=== PATIENT | male | born 1940 | race Caucasian/White ===

== ENCOUNTER 2016-11-19 10:54 | Emergency (ER) | payer OTHER, BC ==
[~2016-11-19] VITALS: Ht 170.2 cm; Wt 78.9 kg
[~2016-11-19 10:54] MED LIST: ALEVE220 MG PO; AMOXICILLIN875 MG PO; ASPIRIN EC81 M1 PO; ASPIRIN325 PO; AUGMENTIN 875875 MG PO; CARAFATE 1 GM TA1 G1 PO; FISH OIL 1,0001 EAC5 PO; FISH OIL SOFTG1 EACH PO; FISHOIL PO; FLONASE 0.05%50 MCG INH; HYDROCODONE-AP1 EAC6 PO; LASIX 40 MG TAB40 M2 PO; LIPITOR40 MG PO; LIPITOR80 MG PO; LORTAB 5 MG/5001 TA1 PO; MEGARED FISH OIL PO; NORCO 5-325 TA1 EACH PO; PERCOCET 7.5-31 EACH PO; PLAVIX 75 MG TA75 MG PO; PROTONIX40 M1 PO; QUINU5 PD PO; SENOKOT-S1 TA1 PO; TRAMADOL 50 MG50 MG PO; [UNRECOGNIZED DRUG - REMARK]
[2016-11-19] MEDS ORDERED: KEFLEX500 MG PO (12:23)
== END 2016-11-19 12:23 | disposition home or self-care (01) ==
LOC: ER 10:54
DX: S61.412A Laceration without foreign body of left hand, initial encounter (principal); F10.99 Alcohol use, unspecified with unspecified alcohol-induced disorder; Z95.0 Presence of cardiac pacemaker; W29.3XXA Contact with powered garden and outdoor hand tools and machinery, initial encounter; Y93.89 Activity, other specified; Y92.89 Other specified places as the place of occurrence of the external cause; Y99.8 Other external cause status

== ENCOUNTER → 2019-03-24 | Outpatient (CLI) | payer OTHER, BC ==
[~2019-03-24] MED LIST changes: +KEFLEX500 MG PO
== END ==
LOC: SJCVCINTER 11:34 → SJCVCIMAG 12:01
DX: Z01.818 Encounter for other preprocedural examination (principal); I72.3 Aneurysm of iliac artery; I25.10 Atherosclerotic heart disease of native coronary artery without angina pectoris; I10 Essential (primary) hypertension; I73.9 Peripheral vascular disease, unspecified; E78.00 Pure hypercholesterolemia, unspecified; Z95.828 Presence of other vascular implants and grafts; Z95.0 Presence of cardiac pacemaker; Z87.891 Personal history of nicotine dependence; Z86.73 Personal history of transient ischemic attack (TIA), and cerebral infarction without residual deficits

== ENCOUNTER → 2019-12-29 | Outpatient (CLI) | payer OTHER, BC | LOC: SJCVC 10:21 | PROVIDERS: ATTEND Internal Medicine Cardiovascular Disease | DX: Z45.018 Encounter for adjustment and management of other part of cardiac pacemaker (principal); I44.1 Atrioventricular block, second degree; R94.31 Abnormal electrocardiogram [ECG] [EKG]; I10 Essential (primary) hypertension; I65.23 Occlusion and stenosis of bilateral carotid arteries; I72.3 Aneurysm of iliac artery; I49.5 Sick sinus syndrome; E78.00 Pure hypercholesterolemia, unspecified; Z79.899 Other long term (current) drug therapy; Z86.73 Personal history of transient ischemic attack (TIA), and cerebral infarction without residual deficits; Z87.891 Personal history of nicotine dependence ==

== ENCOUNTER → 2020-01-17 | Outpatient (CLI) | payer OTHER, BC | LOC: RAD 13:45 | PROVIDERS: ATTEND Emergency Medicine | DX: R05 Cough (principal) ==

== ENCOUNTER 2020-01-26 08:39 | Emergency (ER) | payer OTHER, BC ==
[~2020-01-26] VITALS: Ht 170.2 cm; Wt 77.1 kg
[2020-01-26 11:51] VITALS: BP 145/79
--- NOTE | 2020-01-26 12:19 | EKG ---
[facility] [place] [address] [address] ELECTROCARDIOGRAM REPORT Name: YAMILEX HUANG Room #: [facility] MReguloRRegulo#: [id number] Admission: 01/26/20 Attend Phys: Discharge: 01/26/20 Date of : 40 Report #: [id number] THIS REPORT FOR: cc: Rishabh Mckeon MD [facility] Rishabh Mckeon MD [facility] Hal Wesley MD [facility] ~ THIS REPORT FOR: //name// [facility] ED Test Date: 2020-01-26 Test Time: 09:24:37 Pat Name: YAMILEX HUANG Department: Room: Gender: M Batchmaker: [facility] : 1940 Requested By: Harlan House Order Number: [id number] : Hal Wesley Measurements Intervals [facility] Rate: 67 P: 59 DE: 222 QRS: -89 QRSD: 161 T: 70 QT: 464 QTc: 490 Interpretive Statements Ventricular-paced rhythm No further analysis attempted due to paced rhythm Baseline wander in lead(s) V2 Compared to ECG 09/25/2015 06:52:57 Atrial-sensed ventricular-paced complex(es) or rhythm no longer present Electronically Signed On 01-26-2020 12:19:06 [employer] by Hal Wesley [email or web address] <ELECTRONICALLY SIGNED> By: Hal Wesley MD, FACC 01/26/20 1219 3 3 Hal Wesley MD, FAC /EPI
== END 2020-01-26 11:52 | disposition home or self-care (01) ==
LOC: ER 08:39
DX: S01.81XA Laceration without foreign body of other part of head, initial encounter (principal); R42 Dizziness and giddiness; Z95.0 Presence of cardiac pacemaker; Z90.49 Acquired absence of other specified parts of digestive tract; Z79.899 Other long term (current) drug therapy; Z79.2 Long term (current) use of antibiotics; Z79.82 Long term (current) use of aspirin; W22.09XA Striking against other stationary object, initial encounter; Y93.01 Activity, walking, marching and hiking; Y92.098 Other place in other non-institutional residence as the place of occurrence of the external cause; Y99.8 Other external cause status

== ENCOUNTER → 2020-05-30 | Outpatient (CLI) | payer OTHER, BC | LOC: RAD 07:52 | PROVIDERS: ATTEND Internal Medicine | DX: J84.10 Pulmonary fibrosis, unspecified (principal) ==

== ENCOUNTER → 2020-08-28 | Outpatient (CLI) | payer OTHER, BC | LOC: SJCVCIMAG 08:49 | PROVIDERS: ATTEND Internal Medicine Cardiovascular Disease | DX: Z01.818 Encounter for other preprocedural examination (principal); R06.00 Dyspnea, unspecified; I10 Essential (primary) hypertension; E78.5 Hyperlipidemia, unspecified; Z95.0 Presence of cardiac pacemaker; I49.5 Sick sinus syndrome ==

== ENCOUNTER → 2020-09-14 | Outpatient (CLI) | payer OTHER, BC ==
[~2020-09-14] VITALS: Ht 167.6 cm; Wt 74.8 kg
[~2020-09-14] MED LIST changes: +ATORVASTATIN CA80 MG PO; +CARAFATE 1 GM TA1 GM PO; +DONEPEZIL HCL 55 M1 PO; +KRILL OIL 5001 EAC1 PO; +OMEPRAZOLE40 MG PO; +VITAMIN B-125000 MCG PO
--- NOTE | ~2020-09-14 | P ---
[facility] [place] [address] [address] PROCEDURE REPORT Name: REINAYAMILEX Room #: PAUL NEO Meredith#: [id number] Admission: 09/14/20 Attend Phys: Indra Shane Discharge: Date of : 40 Report #: [id number] THIS REPORT FOR: cc: Rishabh Mckeon MD [facility] Rishabh Mckeon MD [facility] Indra Paredes MD ~ DOC #: [id number] cc: Murray Lopez MD, Rishabh Mckeon MD, Gurjit Owusu MD, Andrew Paredes MD DATE OF SERVICE: 09/14/2020 PROCEDURE PERFORMED: Upper endoscopy with biopsies. HISTORY OF PRESENT ILLNESS: The patient is a 79-year-old male who reports a history of intermittent nausea and vomiting approximately 2 weeks ago. He then began feeling somewhat better, underwent bilateral inguinal hernia repair by Dr. Owusu last week and afterwards began having increasing symptoms of nausea and recurrent vomiting at times. He has been taking an antinausea medicine, he is unsure of the name, but appears to be Zofran, which has been helpful. He was started on Prilosec approximately 2 months ago, as well as Carafate several weeks ago. He denies any significant heartburn symptoms. He denies any dysphagia or odynophagia. He has lost approximately 10 pounds in the last few weeks apparently. The patient was on Plavix, has been held recently. He reports his bowel movements have been normal. He denies any hematemesis or blood in the stools. Plan is for upper endoscopy. DESCRIPTION OF PROCEDURE: The risks and benefits of the procedure were explained to the patient, those risks including but not limited to bleeding, perforation and the risk of sedation. He understood these risks and gave informed consent. Sedation was given using propofol per anesthesia. Next, using a standard Olympus upper endoscope, the scope was placed in the patient's mouth and advanced under direct vision through the esophagus, stomach and into the second portion of the duodenum. The upper and mid esophagus was normal in appearance. In the distal esophagus, a small pink mucosal tongue was noted extending approximately 1 cm above the GE junction. Biopsies were obtained to rule out the possibility of Lawrence's esophagus. No evidence of esophagitis. Upon entering the stomach, a small hiatal hernia was noted. Overall, the gastric mucosa was normal. The biopsies were obtained to rule out H. pylori. The pylorus was normal and patent. The duodenal bulb, first and second portion were all normal. Biopsies were obtained to rule out the possibility of celiac sprue. The scope was then withdrawn and the procedure terminated. The patient tolerated the procedure well. IMPRESSION: [facility] [address] [place] [address] PROCEDURE REPORT Name: REINAYAMILEX Room #: REG NEO Meredith#: [id number] Admission: 09/14/20 Attend Phys: Indra Shane Discharge: Date of : 40 Report #: [id number] 1. 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 2. Small hiatal hernia. 3. Otherwise, normal upper endoscopy. RECOMMENDATIONS: 1. Await biopsy results. 2. Continue PPI therapy. Continue Zofran on a p.r.n. basis. If no improvement in the near future and biopsies are negative, may consider imaging at that point. Thank you for allowing me to participate in his care. Indra Paredes MD [facility] By: [id number] Indra Paredes MD /nt
--- NOTE | 2020-09-18 19:07 | PATH ---
[facility] [place] [address] PATHOLOGY RPT PROCEDURE Name: ANSELMO TORREZ Room #: PAUL LARSON Viri#: [id number] Admission: 09/14/20 Date of : 40 Discharge: Report #: [id number] Path Case #: [id number] [facility] Accession Number: [id number] . 01 Material submitted: . PART A: duodenum - DUODENAL BX R/O SPRUE PART B: gastrointestinal site - GASTRITIS BX R/O H.PYLORI PART C: esophagus - DISTAL ESOPHAGUS R/O ROMERO'S. Modifiers: distal . 01 Clinical history: . DTS/EGD/VOMITTING, R ABD PAIN . 02 Diagnosis: A. Small bowel mucosa, duodenum, rule out sprue, endoscopic biopsy: - No diagnostic abnormalities. - Negative for villous blunting or increase in intraepithelial lymphocytes. . B. Gastric mucosa, gastritis, rule out H. pylori, endoscopic biopsy: - Mild reactive gastropathy. - Negative for intestinal metaplasia or atrophy. - Negative for H. pylori (properly controlled immunohistochemical stain performed. . C. Gastroesophageal mucosa, distal esophagus, rule out Romero's, endoscopic biopsy: - Specialized columnar epithelium (gastric cardia-type mucosa) with intestinal metaplasia, consistent with Romero's metaplasia. - Negative for dysplasia. - Squamous mucosa with mild esophagitis. (IUV:pit; 09/18/2020) [facility] 09/18/2020 1302 Local . 02 Comment: C. The above diagnosis of Romero's esophagus is made due to the presence of intestinal metaplasia and with the assumption that the biopsies were obtained from the columnar mucosa in the distal esophagus located at least 1 cm proximal to the top of the gastric folds as per the 2016 ACG guidelines. (IUV:pit; 09/18/2020) . 02 Electronically signed: . Irasema Mccray MD, Pathologist NPI- [id number] . 01 Gross description: . A. Received in formalin labeled "Anselmo Torrez duodenal biopsy rule [address] [address] PATHOLOGY RPT PROCEDURE Name: ANSELMO TORREZ Room #: REG NEO Meredith#: [id number] Admission: 09/14/20 Date of : 40 Discharge: Report #: [id number] Path Case #: [id number] out sprue" are multiple fragments of camejo-brown soft tissue measuring in aggregate 1.4 x 0.5 x 0.3 cm. The specimen is submitted entirely in A1. . B. Received in formalin labeled "Salomóni, Achilles gastritis biopsy rule out H. pylori" are multiple fragments of camejo-brown soft tissue measuring in aggregate 1.2 x 0.5 x 0.3 cm. The specimen is submitted entirely in B1. . . C. Received in formalin labeled "Tomasini, Achilles distal esophagus rule out Romero's" is a fragment of camejo-brown soft tissue measuring 0.7 x 0.4 x 0.3 cm. The specimen is submitted entirely in C1.([facility]; 09/16/2020) GZA/GZA 09/16/2020 0949 Local . 02 Pathologist provided ICD-10: K31.9, K22.70, K20.90, R10.9 . 02 CPT . 248607, 636166, 828974, [id number] Specimen Comment: A courtesy copy of this report has been sent to [phone], [phone] Specimen Comment: [phone] Specimen Comment: Report sent to / DR MI Performed at: [address] [facility], [place], [place] [id number] MD Matt Sanchez MD Phone: [phone] Performed at: [address] [id number] MD Irasema Mccray MD Phone: [phone]
== END | disposition home or self-care (01) ==
LOC: GI 09:26
PROVIDERS: ATTEND Specialist
DX: R10.9 Unspecified abdominal pain (principal); R11.2 Nausea with vomiting, unspecified; K31.9 Disease of stomach and duodenum, unspecified; K22.70 Barrett's esophagus without dysplasia; R63.4 Abnormal weight loss; K21.9 Gastro-esophageal reflux disease without esophagitis; K44.9 Diaphragmatic hernia without obstruction or gangrene; I10 Essential (primary) hypertension; E78.00 Pure hypercholesterolemia, unspecified; I48.91 Unspecified atrial fibrillation; Z98.890 Other specified postprocedural states; Z79.899 Other long term (current) drug therapy; Z96.611 Presence of right artificial shoulder joint; Z86.73 Personal history of transient ischemic attack (TIA), and cerebral infarction without residual deficits; Z95.0 Presence of cardiac pacemaker
CPT/HCPCS: 62110; 62900